=== PATIENT | female | born 1975 | race Caucasian/White ===

== ENCOUNTER → 2018-03-02 15:27 | Outpatient (CLI) | payer BC, SELFPAY ==
[2018-03-02 17:55] LABS: Progesterone Level 0.02 ng/mL (See Comment)
[2018-03-02 17:57] LABS: Estradiol 61.2 pg/mL; Free T3 2.7 pg/mL (2.18-3.98); T4 Free Direct 0.94 ng/dL (0.76-1.46)
[2018-03-04 12:35] LABS: DHEA Sulfate 49.9 ug/dL (57.3-279.2)
== END ==
PROVIDERS: Referring Provider Specialist; Visit Provider Specialist
DX: N95.1 Menopausal and female climacteric states (principal); R53.81 Other malaise; E03.8 Other specified hypothyroidism
CPT/HCPCS: 36415; 82627; 82670; 84144; 84403; 84439; 84443; 84481; 82626

== ENCOUNTER 2019-05-08 17:03 | Emergency (ER) | payer BC, SELFPAY ==
[2019-05-08 17:05] VITALS: BP 154/102; PULSE 77; RESP 17; TEMP 36.7; O2SAT 96; BMI 41.5
[2019-05-08 18:59] VITALS: RESP 18; O2SAT 96
--- NOTE | 2019-05-08 19:03 | EKG12_ITS ---
Test Reason : DYSRHYTHMIA Blood Pressure : / mmHG Vent. Rate : 070 BPM Atrial Rate : 070 BPM P-R Int : 140 ms QRS Dur : 086 ms QT Int : 396 ms P-R-T Axes : 037 016 006 degrees QTc Int : 427 ms Normal sinus rhythm Nonspecific T wave abnormality Abnormal ECG Confirmed by KATHY LABOY, JESSE ([id number]), art editor ED HERR ([id number]) on 05/10/2019 11:00:37 AM Referred By: MIK Confirmed By:JESSE CHAVEZ MD
--- NOTE | 2019-05-08 19:05 | ED.VIS.FLU ---
History of Present Illness Chief Complaint: Cough Informant: Patient Known exposure: Yes - sick family memebers Onset: Weeks Context: Gradual Onset Timing: Continuous Associated Symptoms: Chills, Cough, Fever, Green sputum, Sore throat Chest Pain: Pressure, Tightness Narrative: Patient is a 43-year-old female with history of migraine headaches and asthma presenting with worsening cough and shortness of breath. Patient was exposed to her son who had a cold around jessy. Since then she has also had cough, sore throat, myalgias and fever. Cough is been productive of green/brown sputum. She intermittently feels like she is wheezing and has been using her albuterol inhaler. She thinks her cough is worsening and has associated shortness of breath which is why she came into the emergency room. She states her cough is very deep. She has chest tightness associated with it. She has had 3 nosebleeds with all of her symptoms as well. She is been trying multiple yqyw-yxw-biiekuy medications with no relief. She is not been formally evaluated for these complaints. She notes that she was in [place] for the holidays and flew back [facility] [place]. She states there is a lot of people coughing around her at that time. She denies any swelling of her legs. Past Medical History - Allergies and Home Meds Allergies/Adverse Reactions: Allergies latex Allergy (Verified 05/08/19 17:09) Rash trifluoperazine [From Stelazine] Allergy (Verified 05/08/19 17:04) Other Primary Care Physician: SHARON BAEZ [Other] Past Medical History: - - Anxiety, insomnia Surgical History: noncontributory Lives: Spouse/ Significant Other Smoking Status: Never smoker Review of Systems General: Reports: Chills, Fever, Malaise. Denies: Sweats ENT: Reports: Left ear pain, Sore throat. Denies: Rhinorrhea Cardiovascular: Reports: Chest pain - Tightness. Denies: Palpitations Respiratory: Reports: Dyspnea, Cough, Sputum, - - Chest congestion. Denies: Dyspnea on exertion Gastrointestinal: Denies: Abdominal pain, Nausea, Vomiting, Diarrhea, Melena, Hematochezia Genitourinary: Denies: Dysuria, Hematuria, Frequency Skin: Denies: Rash Neurological: Denies: Headache, Weakness, Numbness Physical Exam Vital Signs/Narrative: Vital Signs Temp Pulse Resp BP Pulse Ox 05/08/19 18:59 18 96 05/08/19 17:05 98.1 F 77 17 154/102 H 96 Inital Vital Signs reviewed: Yes General: Well nourished, Well developed, Obese Head: Normocephalic, Atraumatic Eyes: Perrl, EOMI ENT: Moist mucous membranes, No rhinorrhea, - - Normal right tympanic membrane. Left tympanic membrane has dullness and mild erythema. No bulging or air-fluid level noted Neck: Supple, Nontender Cardiovascular: Regular rate, Regular rhythm, No murmurs Respiratory: No distress, CTA bilaterally, No Stridor Abdomen: Soft, Nontender, Nondistended, Normal bowel sounds Back: Nontender, Normal Inspection Extremities: Nontender, No edema Skin: Normal color, No rash Neurological: Alert, Oriented x3, Cranial nerves II-XII grossly intact, Normal Strength, Normal Sensation Psychological: Normal affect Diagnostic/Tx/Re-eval Chest X-Ray - ED: 2 View, Read by ED Physician, Read by Radiologist, No Acute Disease Clinical Impression(s) from Imaging Studies Chest X-Ray 05/08/19 20:12 IMPRESSION: Normal x-ray examination of the chest. Electronically Signed: Diego Faustin DO at 21:01 EST Tel [phone], Service support , Laboratory Data 05/08/19 05/08/19 18:55 18:55 WBC 9.3 RBC 4.55 Hgb 13.4 Hct 40.0 MCV 87.9 MCH 29.5 MCHC 33.5 RDW Std Deviation 43.8 RDW Coeff of Breana 13.7 Plt Count 269 MPV 10.4 Immature Gran % (Auto) 0.500 Neut % (Auto) 60.9 Lymph % (Auto) 28.9 Door % (Auto) 5.0 Eos % (Auto) 4.2 Baso % (Auto) 0.5 Absolute Neuts (auto) 5.6 Absolute Lymphs (auto) 2.68 Nucleated RBC % 0 Sodium 140 Potassium 3.6 Chloride 109 H Carbon Dioxide 25.0 Anion Gap 6 BUN 10 Creatinine 0.95 Estim Creat Clear Calc 67.29 Est GFR (MDRD) Af Amer 82 Est GFR (MDRD) Non-Af 67 BUN/Creatinine Ratio 10.5 Glucose 90 Calcium 9.5 Total Bilirubin 0.40 AST 42 H ALT 79 H Alkaline Phosphatase 95 Troponin I < 0.015 Total Protein 7.8 Albumin 3.9 Globulin 3.9 Albumin/Globulin Ratio 1.0 - Rhythm Strip Rhythm Strip: Sinus Rhythm Rate: 70 Ectopy: None - EKG Initial EKG Interpretation: Sinus Rhythm, - - Normal sinus rhythm at a rate of 70 Normal axis Normal intervals Nonspecific T wave inversion in 3 and aVF No reciprocal changes Fluid Bolus: NS 1000ml - Medical Decision Making Patient is evaluated for cough, myalgias, chest tightness and left ear pain. She appears nontoxic in no acute distress. Her vital signs are normal. Looks cells are clear. Patient looks well on physical exam but uncomfortable. Flu swab is negative. Chest x-ray is not show any acute infiltrate. CBC is normal. Patient CMP shows a very mild transaminitis however I do not think this is the cause of her symptoms. Patient does not have any abdominal pain specially in her right upper quadrant. Cardiac work-up is normal. Likely patient symptoms are all viral. I do not think antibiotics are indicated. She is given a shot of Kenalog to help with her sore throat and cough. She is also started on Robitussin-AC. She is instructed to follow-up with her primary care provider. Patient is counseled on signs and symptoms requiring return to the emergency room. Patient verbalizes agreement and understand this plan. Patient discharged home in stable and improved condition. ED Disposition - Plan for ED Patient: Disposition: Home or Assisted Living Diagnosis: Cough, Acute bronchitis, Acute effusion of left ear Instructions: BRONCHITIS, No Antibiotic (Adult) Prescriptions: Fluticasone 0.05% [Flonase Nasal [place]] 2 spray NASAL DAILY 14 Days #1 nasal.sry Prescription Printed Guaifenesin/Codeine [Robitussin AC] 10 ml PO Q6H PRN PRN #100 udc PRN Reason: Cough Prescription Printed Referrals: SHARON BAEZ [Other] Additional Instructions: Likely this is a viral syndrome that is causing this cough and constellation of symptoms. You received a shot of steroids which should help with the symptoms. You have been written for cough medicine to help as well as Flonase for your ear pain. Please follow-up with your primary care doctor later this week for reevaluation. Return the emergency room if you have worsening or changing symptoms. At this time I do not think you require antibiotics and are safe to go home.
--- NOTE | 2019-05-08 19:09 | ED.RN ---
NO OLD EKGS IN MUSE
[2019-05-08 19:20] VITALS: PULSE 93; RESP 20
[2019-05-08] MEDS: Albuterol 2.5 MG/3 ML VIAL.NEB. INHALATION (19:20)
[2019-05-08 19:22] LABS: Absolute Lymphocyte Count 2.68 X10^3/uL (0.83-4.51); Absolute Neutrophil Count 5.6 X10^3/uL (2.0-7.7); Basophil# 0.05 X10^3/uL; Basophil% 0.5 % (0-1); Eosinophil# 0.39 X10^3/uL; Eosinophils% 4.2 % (0-5); Hemoglobin 13.4 g/dL (12.0-15.0); Lymphocyte # 2.68 X10^3/ul (4.0); Lymphocyte % 28.9 % (19-41); Mean Corp Hgb Conc 33.5 g/dL (32-36); Mean Corpuscular Hgb 29.5 pg (27.0-32.0); Mean Corpuscular Volume 87.9 fL (81-99); Mean Platelet Vol. 10.4 fl (6.2-12.0); Monocyte# 0.46 X10^3/uL; NRBC Flagged by Analyzer 0 % (0-5); Neutrophil # 5.64 X10^3/uL (2.7-7.7); Neutrophil % 60.9 % (47-70); Platelet Count 269 K/mm3 (150-450); RBC Distribution Width CV 13.7 % (11.6-14.6); RBC Distribution Width SD 43.8 fl (35.1-43.9); Red Blood Count 4.55 M/mm3 (4.2-5.4); White Blood Count 9.3 K/mm3 (4.4-11.0)
[2019-05-08 19:39] LABS: AST(SGOT) 42 U/L (15-37); Alanine Aminotransfer ALT/SGPT 79 U/L (13-56); Albumin, Serum 3.9 g/dL (3.2-5.0); Alkaline Phosphatase 95 U/L (45-117); Anion Gap 6 (5-15); BUN 10 mg/dL (7-18); BUN/Creat Ratio 10.5 RATIO (10-20); Calcium,Total 9.5 mg/dL (8.5-10.1); Chloride 109 mmol/L (98-107); Creatinine, Serum 0.95 mg/dL (0.55-1.02); EST Glomerular Filtration Rate 67 mL/min (>60); Est Glom Filt Rate - Afr Amer 82 mL/min (>60); Estimated Creatinine Clearance 67.29 ml/min; Globulin 3.9 g/dL (2.2-4.2); Glucose 90 mg/dL (74-106); Potassium 3.6 mmol/L (3.5-5.1); Protein, Total 7.8 g/dL (6.4-8.2); Sodium Level 140 mmol/L (136-145)
[2019-05-08] MEDS: 0.9% Normal Saline 1,000 ML 1000 ML IV (19:56)
[2019-05-08] MEDS: proMETHazine 25 MG/ML Syringe 12.5 MG IV (19:56)
[2019-05-08] MEDS: Ketorolac 15 MG/ML Vial IV (19:56)
[2019-05-08 20:01] VITALS: RESP 14
--- NOTE | 2019-05-08 20:12 | RAD_ITS ---
STUDY: X-RAY CHEST REASON FOR EXAM: Female, 43 years old. Cough. TECHNIQUE: PA and lateral views of the chest. COMPARISON: None. FINDINGS: The lungs are clear and expanded. There is no demonstrated pleural abnormality. Normal size heart. Normal mediastinum and lelo. Normal visualized pulmonary arteries. Normal visualized aortic arch and descending thoracic aorta. Normal visualized thoracic spine. Normal visualized ribs, clavicles, and shoulders. There is no demonstrated abnormality of the visualized soft tissue structures of the upper abdomen. RAD/Chest PA and Lateral IMPRESSION: Normal x-ray examination of the chest. Electronically Signed: Diego Faustin DO at 21:01 EST Tel [phone], Service support ,
[2019-05-08] MEDS: Triamcinolone Acetonide 40 MG/ML Vial IM (22:23)
[2019-05-08 23:12] VITALS: BP 148/99; PULSE 89; RESP 17; O2SAT 97
== END 2019-05-08 23:13 | disposition home or self-care (01) ==
PROVIDERS: Emergency Provider Emergency Medicine
DX: J20.9 Acute bronchitis, unspecified (principal); R05 Cough; F41.9 Anxiety disorder, unspecified; G43.909 Migraine, unspecified, not intractable, without status migrainosus; J45.909 Unspecified asthma, uncomplicated; Z91.040 Latex allergy status; R94.31 Abnormal electrocardiogram [ECG] [EKG]; G47.00 Insomnia, unspecified
CPT/HCPCS: 71046; 80053; 84484; 85025; 87804; 93005; 94640; 94760; 96361; 96372; 96374; 96375; 99283; J7030; A4216

== ENCOUNTER → 2020-10-15 13:13 | Outpatient (CLI) | payer BC, SELFPAY ==
[2020-10-15 15:44] LABS: Cholesterol 200 mg/dL (200); Glucose 103 mg/dL (74-106); High Density Lipoprotein 45 mg/dL; Thyroid Stim Hormone (TSH) 1.62 uIU/mL (0.358-3.74); Triglycerides 177 mg/dL; Very Low Density Lipoprotein 35 mg/dL (5-40)
== END ==
DX: R63.5 Abnormal weight gain (principal); Z13.220 Encounter for screening for lipoid disorders; Z13.1 Encounter for screening for diabetes mellitus
CPT/HCPCS: 36415; 80061; 82947; 84443

== ENCOUNTER → 2020-11-12 14:54 | Outpatient (CLI) | payer BC, SELFPAY ==
[2020-11-12 18:10] LABS: Hemoglobin A1c 5.4 % (3.8-5.6)
== END ==
DX: Z13.1 Encounter for screening for diabetes mellitus (principal)
CPT/HCPCS: 36415; 83036

== ENCOUNTER 2021-07-09 14:58 | Outpatient (CLI) | payer BC, SELFPAY ==
--- NOTE | 2021-07-09 15:09 | CT_ITS ---
STUDY: CT ABDOMEN AND PELVIS WITH CONTRAST REASON FOR EXAM: Female, 45 years old. ABD/PELVIC/PERINEAL PAIN RADIATION DOSAGE (If Supplied By Facility): CTDIvol = ( 22.06 ) mGy, DLP = ( 1329.87 ) mGycm TECHNIQUE: Transaxial images were obtained from the dome of the diaphragm to the symphysis pubis with oral contrast. Oral and amp; IV Gastrografin and amp; 100mL Isovue-300 was administered. Sagittal and coronal images were reconstructed. Individualized dose optimization techniques were used for this CT. COMPARISON: None. FINDINGS: The visualized lung bases are unremarkable. The visualized portions of the heart are within normal limits. Normal liver. There are surgical clips in the gallbladder fossa consistent with a prior cholecystectomy. Normal spleen. Normal pancreas. There is a small, circumscribed, smooth, low attenuation left adrenal mass, consistent with an adrenal adenoma. Normal right adrenal gland. Normal right kidney. Normal left kidney. Normal visualized stomach. Normal small intestine. Normal colon. There is non-visualization of the appendix. Normal abdominal aorta. Normal inferior vena cava. Normal retroperitoneum. Normal urinary bladder. Normal abdominal wall. Normal osseous structures. CT/Abdomen/Pelvis WITH Contrast IMPRESSION: Normal enhanced CT of the abdomen and pelvis. Electronically Signed: Eduard Ferguson MD at 17:38 EST ,
== END 2021-07-09 23:59 | disposition home or self-care (01) ==
PROVIDERS: Visit Provider Family Medicine
DX: R10.84 Generalized abdominal pain (principal); R10.2 Pelvic and perineal pain
CPT/HCPCS: 74177; Q9967

== ENCOUNTER → 2021-10-31 | Outpatient (CLI) | payer BC, SELFPAY ==
[2021-11-05 12:28] LABS: H. PYLORI STOOL AG Negative (Negative)
== END | disposition home or self-care (01) ==
DX: Z20.09 Contact with and (suspected) exposure to other intestinal infectious diseases (principal)

== ENCOUNTER → 2022-04-29 | Outpatient (CLI) | payer BC, SELFPAY ==
--- NOTE | 2022-04-29 15:16 | BI_ITS ---
MAMMOGRAPHY - BILATERAL SCREENING REASON FOR EXAM: Female, 46 years old. Routine annual screening examination. PERTINENT HISTORY: Grandmother with breast cancer. Remote bilateral excisional breast biopsies. TECHNIQUE: Digital bilateral breast elliott (3D mammographic acquisition) in the CC and MLO projections. 2-D mediolateral oblique (MLO) and craniocaudad (CC) views of both breasts were obtained. CAD: Full Field Digital Mammography with Computer Added Detection was performed. COMPARISON: Comparison is made with prior outside examination of 02/01/2021. FINDINGS: Breast Composition: There are scattered areas of fibroglandular density. There are no dominant masses or suspicious calcifications. Stable small benign-appearing bilateral axillary lymph nodes. No other significant abnormalities are identified. There has been no significant change since the prior study. BI/SCRN MAMM (CAD)W/ELLIOTT BILAT IMPRESSION: Stable bilateral screening mammogram. Yearly follow-up mammogram recommended. (A) ASSESSMENT CATEGORY: BIRADS Category 2: Benign. A letter regarding these results will be sent to the patient by the facility within 30 days. Approximately 10% of breast cancers are not detected by mammography. A normal mammogram should not delay biopsy of a clinically suspicious abnormality. [id number] Electronically Signed: Romero Dunlap MD at 14:31 EST ,
== END | disposition home or self-care (01) ==
PROVIDERS: Visit Provider Family Medicine
DX: Z12.31 Encounter for screening mammogram for malignant neoplasm of breast (principal)
CPT/HCPCS: 77063; 77067

== ENCOUNTER 2022-05-13 16:10 | Emergency (ER) | payer BC, SELFPAY ==
[2022-05-13 16:11] VITALS: PULSE 85; RESP 15; TEMP 36.5; O2SAT 100; BMI 43.4
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
[2022-05-13 19:09] VITALS: RESP 16
== END 2022-05-13 19:10 | disposition home or self-care (01) ==
PROVIDERS: Emergency Provider Emergency Medicine; PCP Family Medicine; Visit Provider Emergency Medicine
DX: S40.011A Contusion of right shoulder, initial encounter (principal); S60.211A Contusion of right wrist, initial encounter; S70.01XA Contusion of right hip, initial encounter; E66.9 Obesity, unspecified; V43.52XA Car driver injured in collision with other type car in traffic accident, initial encounter
CPT/HCPCS: 71045; 73030; 73110; 73502; 99284

== ENCOUNTER → 2023-03-16 | Outpatient (CLI) | payer BC, SELFPAY ==
--- NOTE | 2023-03-16 14:16 | BD_ITS ---
STUDY: DUAL ENERGY X-RAY ABSORPTIOMETRY / DXA REASON FOR EXAM: Female, 47 years old. 733.00OsteoporosisBONE DENSITY REASON FOR EXAM TECHNIQUE: Bone Mineral Density (BMD) measurements of lumbar spine , left forearm and bilateral hips were obtained. COMPARISON: None. FINDINGS: Lumbar Spine (L1-L4): g/cm2 (0.936) / T-score (-1.0) / Z-score (-0.3) Findings are suggestive of normal bone density with a low fracture risk. Left Femur Total: g/cm2 (0.918) / T-score (-0.2) / Z-score (0.2) Left Femoral Neck: g/cm2 (0.764) / T-score (-0.8) / Z-score (-0.1) Right Femur Total: g/cm2 (0.918) / T-score (-0.2) / Z-score (0.2) Right Femoral Neck: g/cm2 (0.764) / T-score (-0.8) / Z-score (-0.1) Left Forearm: g/cm2 (0.567) / T-score (-0.2) / Z-score (0.4) BD/Dexa Bone Density Study IMPRESSION: The patient is considered normal as outlined below according to World Jose Organization (WHO) criteria with a low fracture risk. Reference Information: The T-score is the number of standard deviations above or below the standard which is normal for young adults at their peak bone mineral density. The World Health Organization (WHO) interprets the T-scores as follows: Above -1 Normal bone density Between -1 and -2.5 Osteopenia Equal to / or below -2.5 Osteoporosis As a practical clinical guideline, osteopenia may be graded as follows: Mild -1 through -1.5 Moderate -1.6 through -2.0 Severe -2.1 through -2.4 The Z-score is the number of standard deviations above or below age-matched controls. A Z-score of less than -1.5 would be considered abnormal. References: 1. NIH Osteoporosis and Related Bone Diseases www osteo.org 2. International Society for Clinical Densitometry www iscd.org 3. National Osteoporosis Foundation www nof.org Electronically Signed: Romero Dunlap MD at 9:11 EST ,
== END | disposition home or self-care (01) ==
LOC: OPBD 13:59
PROVIDERS: PCP Family Medicine; Referring Provider Internal Medicine Endocrinology, Diabetes & Metabolism; Visit Provider Internal Medicine Endocrinology, Diabetes & Metabolism
DX: M85.89 Other specified disorders of bone density and structure, multiple sites (principal)
CPT/HCPCS: 77080

== ENCOUNTER 2023-03-20 13:37 | Emergency (ER) | payer BC, SELFPAY ==
[2023-03-20 13:39] VITALS: BP 134/108; PULSE 83; RESP 18; TEMP 36.2; O2SAT 97; BMI 47.1
--- NOTE | 2023-03-20 14:18 | CT_ITS ---
INDICATION: headache EXAMINATION: CTA HEAD - CTA Head WO/W Contrast Injection TECHNIQUE: [place]/head CT angiogram protocol was performed following IV contrast. 3D reconstructions were reviewed. A radiation dose optimization technique was used for this scan. IV Contrast dosage and agent: 100 cc of Isovue-370 . RADIATION DOSAGE (If Supplied By Facility): CTDIvol = ( 26.12 ) mGy, DLP = ( 1161.92 ) mGycm COMPARISON: No relevant prior comparison study available FINDINGS: Noncontrast images of the brain demonstrate no acute process. Ventricles are normal in size and position. No shift of the midline or mass effect. No evidence of intracranial hemorrhage or subdural hematoma. --Anterior circulation: ICAs: No significant stenosis at the intracranial/visualized segments. ACAs: No significant stenosis at the visualized segments. ACOM: Present. MCAs: No significant stenosis at the visualized segments. --Posterior circulation: PCOMs: housing and residence life director: No significant stenosis at the visualized segments. BASILAR ARTERY: No significant stenosis. VERTEBRAL ARTERIES: No significant stenosis at the intradural/visualized segments. No evidence of intracranial aneurysm or vascular malformation. CT/CTA Head W/WO Contrast IMPRESSION: No evidence of intracranial great vessel stenosis. Electronically Signed: Danny Venegas MD at 16:03 EST ,
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
[2023-03-20 14:33] LABS: Absolute Lymphocyte Count 1.58 X10^3/uL (0.83-4.51); Absolute Neutrophil Count 8.2 X10^3/uL (2.0-7.7); Basophil# 0.05 X10^3/uL; Basophil% 0.5 % (0-1); Eosinophil# 0.14 X10^3/uL; Eosinophils% 1.3 % (0-5); Hemoglobin 13.6 g/dL (12.0-15.0); Lymphocyte # 1.58 X10^3/ul (0.83-4.51); Lymphocyte % 15.1 % (19-41); Mean Corp Hgb Conc 31.6 g/dL (32-36); Mean Corpuscular Hgb 28.6 pg (27.0-32.0); Mean Corpuscular Volume 90.5 fL (81-99); Monocyte# 0.43 X10^3/uL; Monocyte% 4.1 % (0-10); NRBC Flagged by Analyzer 0 % (0-5); Neutrophil # 8.19 X10^3/uL (2.7-7.7); Neutrophil % 78.5 % (47-70); Platelet Count 267 K/mm3 (150-450); RBC Distribution Width CV 13.8 % (11.6-14.6); RBC Distribution Width SD 46.8 fl (35.1-43.9); Red Blood Count 4.75 M/mm3 (4.2-5.4); White Blood Count 10.4 K/mm3 (4.4-11.0)
[2023-03-20] MEDS: 0.9% Normal Saline (1000mL) 1,000 ML 999 ML IV (14:36)
[2023-03-20] MEDS: DiphenhydrAMINE 50 MG/ML Syringe 25 MG IV (14:37)
[2023-03-20] MEDS: Metoclopramide 10 MG/2 ML Vial IV (14:37)
[2023-03-20 14:48] LABS: Anion Gap 5 (5-15); BUN 9 mg/dL (7-18); BUN/Creat Ratio 9.5 RATIO (10-20); Calcium,Total 9.5 mg/dL (8.5-10.1); Chloride 104 mmol/L (98-107); Creatinine, Serum 0.95 mg/dL (0.55-1.02); EST Glomerular Filtration Rate 66 mL/min (>60); Est Glom Filt Rate - Afr Amer 80 mL/min (>60); Estimated Creatinine Clearance 64.46 ml/min; Glucose 125 mg/dL (74-106); Potassium 4.2 mmol/L (3.5-5.1); Sodium Level 138 mmol/L (136-145)
[2023-03-20] MEDS: Ketorolac 30 MG/ML Syringe IV (16:06)
[2023-03-20] MEDS: dexAMETHasone 10 MG/ML Vial 6 MG IV (16:07)
[2023-03-20 16:30] LABS: Bacteria 0 SEEN /hpf (None Seen); Mucous, Urine 0 SEEN /hpf (<or=2+); Squamous Epithelial Cells - UA 0 SEEN /hpf (5-10); White Blood Cells 0 SEEN /hpf (0-5)
[2023-03-20 16:36] LABS: Color, Urine Yellow (Yellow); Glucose, Dipstick Normal (Normal); Ketone-Dipstick Negative (Negative); Leukocyte Esterase-Dipstick Negative /ul (Negative); Nitrite-Dipstick Negative (Negative); Occult Blood-Urine Negative /ul (Negative); Protein-Dipstick Negative (Negative); Urine Bilirubin Dipstick Negative (Negative); Urine Clarity Clear (Clear); Urine Urobilinogen Normal (Normal)
[2023-03-20 16:52] LABS: Red Blood Cells-Urine 0-5 SEEN /hpf (0-5)
[2023-03-20] MEDS: Valproate Sodium 500 MG in Dextrose 5%-Water (50mL Bag) 50 ML 50 MG IV (17:15)
[2023-03-20 18:21] VITALS: BP 147/93; PULSE 74; RESP 14; O2SAT 99
== END 2023-03-20 18:22 | disposition home or self-care (01) ==
PROVIDERS: Physician Assistant; Emergency Provider Emergency Medicine; PCP Family Medicine; Visit Provider Emergency Medicine
DX: G43.909 Migraine, unspecified, not intractable, without status migrainosus (principal)
CPT/HCPCS: 70496; 80048; 81001; 85025; 96361; 96365; 96375; 99283; J7030; Q9967; A4216

== ENCOUNTER → 2023-05-27 | Outpatient (CLI) | payer BC, SELFPAY ==
[2023-05-27 18:17] LABS: AST(SGOT) 22 U/L (15-37); Alanine Aminotransfer ALT/SGPT 36 U/L (13-56)
[2023-05-27 18:18] LABS: Insulin 57.8 mU/L (2.6-37.6); Vitamin D,25 Hydroxy 38.8 ng/mL
== END | disposition home or self-care (01) ==
LOC: MTLAB 16:25
PROVIDERS: PCP Family Medicine; Referring Provider Internal Medicine Endocrinology, Diabetes & Metabolism; Visit Provider Internal Medicine Endocrinology, Diabetes & Metabolism
DX: E88.818 Other insulin resistance (principal); E55.9 Vitamin D deficiency, unspecified
CPT/HCPCS: 36415; 82306; 83525; 84450; 84460

== ENCOUNTER → 2023-05-31 | Outpatient (CLI) | payer BC, SELFPAY ==
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
== END | disposition home or self-care (01) ==
LOC: OPBI 14:54
PROVIDERS: PCP Family Medicine; Referring Provider Family Medicine; Visit Provider Family Medicine
DX: Z12.31 Encounter for screening mammogram for malignant neoplasm of breast (principal)
CPT/HCPCS: 77063; 77067

== ENCOUNTER → 2023-07-02 | Outpatient (CLI) | payer BC, SELFPAY ==
--- NOTE | 2023-07-02 10:21 | RAD_ITS ---
INDICATION: PAIN EXAMINATION/TECHNIQUE: X-RAY - XR Pelvis 1 or 2 Views COMPARISON: 05/13/2022 FINDINGS: PELVIC BONES: No displaced fracture, destructive or sclerotic lesions. Note that overlapping bowel shadows may however obscure fine detail. Sacroiliac joints are unremarkable. No widening of the pubic symphysis. HIPS: The articular structures are unremarkable. No displaced fracture seen in this frontal view. SOFT TISSUES: No soft tissue swelling or gas. RAD/Pelvis 1 or 2 Views IMPRESSION: No evidence of displaced pelvic or hip fracture. Electronically Signed: Eduard Nava MD at 18:30 EST ,
--- OUTSIDE RECORDS SUMMARY | 2023-07-02 10:41 | XMS RPT_ITS | CCD ---
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 Exam Vitals reviewed. Constitutional: Appearance: Normal appearance. HENT: Head: Normocephalic and atraumatic. Skin: General: Skin is warm and dry. Comments: Patient has 4 erythematous red raised lesions with central blister on the left upper arm. Mildly tender on palpation. No sign of abscess. No lymphangitic streaking. Neurological: Mental Status: She is alert. Assessment and Plan ASSESSMENT/PLAN: 1. Rash - ICD9: 782.1, ICD10: R21 (primary diagnosis) 2. Spider bite wound, accidental or unintentional, initial encounter - ICD9: 989.5, E905.1, ICD10: T63.301A We will treat with prednisone and Zyrtec. Patient states she has taken care of her son who has had MRSA before, will cover with Bactrim for possible secondary infection. Bia Negrete PA-C [facility] 01-20-2023 History of Present illness Narrative Images from the original note were not included. This note was created using [employer]. Subjective Joni Kenny is a 47 year old female. HPI Presents with spider bite on her left arm over the past 3 days. She states it was a fuzzy spider and her actually had killed in the bed after it had bit her. She is initially was very itchy. She had some blisters initially. Now it has become painful. She had tried some Benadryl which did not seem to help a lot. Her child does have a history of MRSA, she is never had MRSA that she knows of. She states she has been reacting to mosquito bites lately as well when she typically did not. She denies fever or chills. No vomiting. Review of Systems Skin: Spider bites left arm All other systems reviewed and are negative. History reviewed. No pertinent past medical history. Current Outpatient Medications Medication Sig Dispense Refill amitriptyline (ELAVIL) 25 mg tablet TAKE 1 TABLET BY MOUTH EVERY DAY AT NIGHT clotrimazole-betamethasone (LOTRISONE) cream APPLY ON THE SKIN TWICE A DAY NEEDED cyclobenzaprine (FLEXERIL) 5 mg tablet Take 5 mg by mouth three times daily as needed. econazole (SPECTAZOLE) 1 % cream APPLY TWICE DAILY TO THE AFFECTED AREAS OF THE FEET NEEDED Erythromycin-Benzoyl Peroxide gel APPLY ON THE SKIN TWICE A DAY NEEDED FLUoxetine (PROZAC) 20 mg capsule Take 1 capsule by mouth every afternoon. meloxicam (MOBIC) 15 mg tablet Take 1 tablet by mouth every afternoon. mupirocin (BACTROBAN) 2 % ointment APPLY 1 APPLICATION TOPICALLY ON THE SKIN TWICE A DAY promethazine (PHENERGAN) 25 mg tablet Take 25 mg by mouth. tolterodine ER (DETROL LA) 2 mg 24 hr capsule Take 1 capsule by mouth every 12 (twelve) hours. terbinafine HCl (LAMISIL) 250 mg tablet TAKE 1 TABLET BY MOUTH TWICE A DAY FOR 2 WEEKS albuterol HFA (PROAIR HFA) 90 mcg/actuation inhaler Inhale 2 Puffs as instructed every 4 hours as needed. 1 Inhaler 0 predniSONE (DELTASONE) 20 mg tablet Take 2 tablets by mouth once daily for 5 days. 10 tablet 0 sulfamethoxazole-trimethoprim (BACTRIM DS) 800-160 mg per tablet Take 1 tablet by mouth twice daily for 5 days. 10 tablet 0 TOPIRAMATE (TOPAMAX ORAL) Take by mouth. (Patient not taking: Reported on 01/20/2023) ALPRAZOLAM (XANAX ORAL) Take by mouth as needed. (Patient not taking: Reported on 01/20/2023) MEDICATION, NON-DATABASE Ibuprofen, flexerall & phenergan combination (Patient not taking: Reported on 01/20/2023) ZOLPIDEM TARTRATE (AMBIEN ORAL) Take by mouth. (Patient not taking: Reported on 01/20/2023) VITAMIN E ORAL Take by mouth. (Patient not taking: Reported on 01/20/2023) CALCIUM CARBONATE/VITAMIN D3 (VITAMIN D-3 ORAL) Take by mouth. (Patient not taking: Reported on 01/20/2023) GLUCOSAM/MSM/CHOND/IPK522/HYAL ([id number], WITH ANTIOX, ORAL) Take by mouth. (Patient not taking: Reported on 01/20/2023) CYANOCOBALAMIN, VITAMIN B-12, (VITAMIN B12 ORAL) Take by mouth. (Patient not taking: Reported on 01/20/2023) MULTIVITAMIN ORAL Take by mouth. (Patient not taking: Reported on 01/20/2023) No current facility-administered medications for this visit. No past surgical history on file. No family history on file. Social History Tobacco Use Smoking status: Former Smokeless tobacco: Never Objective BP 118/78 Pulse 84 Temp 36.5 C (97.7 F) (Tympanic) Resp 16 Wt 125.2 kg (276 lb) SpO2 97% Physical Exam Vitals reviewed. Constitutional: Appearance: Normal appearance. HENT: Head: Normocephalic and atraumatic. Skin: General: Skin is warm and dry. Comments: Patient has 4 erythematous red raised lesions with central blister on the left upper arm. Mildly tender on palpation. No sign of abscess. No lymphangitic streaking. Neurological: Mental Status: She is alert. Assessment and Plan ASSESSMENT/PLAN: 1. Rash - ICD9: 782.1, ICD10: R21 (primary diagnosis) 2. Spider bite wound, accidental or unintentional, initial encounter - ICD9: 989.5, E905.1, ICD10: T63.301A We will treat with prednisone and Zyrtec. Patient states she has taken care of her son who has had MRSA before, will cover with Bactrim for possible secondary infection. Bia Negrete PA-C documented in this encounter [facility] 01-20-2023 Instructions Bia Negrete PA-C - 01/20/2023 10:38 AM EDT Zyrtec 10 mg daily for 5-7 days documented in this encounter [facility] 10-14-2022 Note . MICRO - Microbiology PROCEDURE: Urine Culture [*1] SOURCE: Urine BODY SITE: COLLECTED DATE/TIME: 10/12/2022 14:57 EDT RECEIVED DATE/TIME: 10/12/2022 19:56 EDT START DATE/TIME: 10/12/2022 19:56 EDT FREE TEXT SOURCE: FINAL REPORTS Final Report [] Verified Date/Time/Personnel: 10/14/2022 07:59 EDT 10,000 - 50,000 cfu/ml Mixed growth consistent with normal urogenital horacio. PRELIMINARY REPORTS Preliminary Report [] Verified Date/Time/Personnel: 10/13/2022 08:51 EDT No growth to date Performing Locations *1: This test was performed at: [facility], [address] [place] [address], [id number] , [facility] ([place]) 11-19-2021 Note . MICRO - Microbiology PROCEDURE: Urine Culture [*1] SOURCE: Urine BODY SITE: COLLECTED DATE/TIME: 11/17/2021 12:45 EDT RECEIVED DATE/TIME: 11/17/2021 17:36 EDT START DATE/TIME: 11/17/2021 17:41 EDT FREE TEXT SOURCE: FINAL REPORTS Final Report [] Verified Date/Time/Personnel: 11/19/2021 08:08 EDT 10,000 - 50,000 cfu/ml Mixed growth consistent with normal urogenital horacio. PRELIMINARY REPORTS Preliminary Report [] Verified Date/Time/Personnel: 11/18/2021 09:23 EDT No growth to date Performing Locations *1: This test was performed at: [facility], [address] [place] [address], [facility] , [facility] ([place]) [facility] Diagnosis Rash- Primary Rash and other nonspecific skin eruption Spider bite wound, accidental or unintentional, initial encounter [facility] Diagnosis Tinnitus, bilateral- Primary Unspecified tinnitus Vertigo Dizziness and giddiness [facility] Diagnosis Subjective tinnitus of both ears- Primary Normal hearing exam Other examination of ears and hearing TMJ click Right ear pain Unspecified otalgia documented in this encounter [facility] Summary Purpose Family History No Family History Records FoundNo Family History Records FoundNo Family History Records FoundNo Family History Records FoundNo Family History Records FoundNo Family History Records Found Advance Directives No Advanced Directives Records FoundNo Advanced Directives Records FoundNo Advanced Directives Records FoundNo Advanced Directives Records FoundNo Advanced Directives Records FoundNo Advanced Directives Records Found Reason for Referral Specialty Diagnoses / Procedures Referred By Contac t Referred To Contact Otolaryngology Diagnoses Subjective tinnitus, unspecified laterality Johan Williamson DO [facility] [place] [address] Rell Berumen MD [facility] [address] [address] Referral ID Status Reason Start Date Expiration Date V isits Requested Visits Authorized [id number] Authorized 01/05/2023 01/05/2024 1 1 Specialty Diagnoses / Procedures Referred By José Miguel t Referred To Contact Audiology Diagnoses Subjective tinnitus of both ears Normal hearing exam [place], Phillip Hernandez, CREATIVE MANAGER [address] [facility] [address] [place] [address] Perla Mahoney AuD [address] [facility] [address] [place] [address] Referral ID Status Reason Start Date Expiration Date V isits Requested Visits Authorized [id number] Authorized 02/10/2023 02/10/2024 1 1 Additional Source Comments INFORMATION SOURCE (unrecogn ized section and content) DATE CREATED AUTHOR AUTHOR'S ORGANIZ ATION 06/14/2021 [facility] DATE CREATED AUTHOR AUTHOR'S ORGANIZ ATION 11/09/2022 [facility] ([place]) DATE CREATED AUTHOR AUTHOR'S ORGANIZ ATION 01/22/2023 [facility] DATE CREATED AUTHOR AUTHOR'S ORGANIZ ATION 02/27/2023 [facility] DATE CREATED AUTHOR AUTHOR'S ORGANIZ ATION 04/23/2023 [facility] Care Teams (unrecognized sec tion and content) Ben Day Artist Relationship Specialty [place] [address] [place] [address] [place] [address] PCP - General Family Medicine 03/23/16 Ben Day Artist Relationship Specialty Start Date End Date Brennan Baez MD [address] [place], [place] [id number] PCP - General Anesthesiology 02/10/23 Ben Day Artist Relationship Specialty Start Date End Date Brennan Baez MD [address] [place], [place] [id number] PCP - General Anesthesiology 02/10/23 Source Comments (unrecognize d section and content) In the event this informatio n is protected by the Federal Confidentiality of Alcohol and Drug Abuse Patient Records regulations: The Federal rules restrict any use of the information to criminally investigate or prosecute any alcohol or drug abuse patient.[facility] Reason for Visit (unrecogniz ed section and content) Reason Comments Tinnitus New patient Specialty Diagnoses / Procedures Referred By Contearl t Referred To Contact Otolaryngology Diagnoses Subjective tinnitus, unspecified laterality Johan Williamson DO [facility] [place] [address] Phillip uD, CREATIVE MANAGER [address] [address] Referral ID Status Reason Start Date Expiration Date Visits Re quested Visits Authorized [id number] Closed 01/05/2023 01/05/2024 1 1 FOR RECORDS PERTAINING TO PATIENTS WHO ARE OR HAVE BEEN ENROLLED IN A CHEMICAL DEPENDENCY/SUBSTANCEABUSE PROGRAM, SOME INFORMATION MAY BE OMITTED. This clinical summary was aggregated from multiple sources. Caution should be exercised in using it in the provision of clinical care. This summary normalizes information from multiple sources, and as a consequence, information in this document may materially change the coding, format and clinical context of patient data. In addition, data may be omitted in some cases. CLINICAL DECISIONS SHOULD BE BASED ON THE PRIMARY CLINICAL RECORDS. [facility] [employer] [facility]. provides no warranty or guarantee of the accuracy or completeness of information in this document.
[2023-07-02 12:41] LABS: Erythrocyte Sedimentation Rate 42 mm/hr (0-30)
[2023-07-02 12:43] LABS: Absolute Lymphocyte Count 3.09 X10^3/uL (0.83-4.51); Absolute Neutrophil Count 6.3 X10^3/uL (2.0-7.7); Basophil# 0.06 X10^3/uL; Basophil% 0.6 % (0-1); Eosinophil# 0.25 X10^3/uL; Eosinophils% 2.4 % (0-5); Hematocrit 41.2 % (37-47); Hemoglobin 13.4 g/dL (12.0-15.0); Lymphocyte # 3.09 X10^3/ul (0.83-4.51); Lymphocyte % 29.7 % (19-41); Mean Corp Hgb Conc 32.5 g/dL (32-36); Mean Corpuscular Hgb 29.2 pg (27.0-32.0); Mean Corpuscular Volume 89.8 fL (81-99); Mean Platelet Vol. 10.8 fl (6.2-12.0); Monocyte# 0.63 X10^3/uL; NRBC Flagged by Analyzer 0 % (0-5); Neutrophil # 6.34 X10^3/uL (2.7-7.7); Neutrophil % 60.8 % (47-70); Platelet Count 315 K/mm3 (150-450); RBC Distribution Width CV 14.1 % (11.6-14.6); RBC Distribution Width SD 46.4 fl (35.1-43.9); Red Blood Count 4.59 M/mm3 (4.2-5.4); White Blood Count 10.4 K/mm3 (4.4-11.0)
[2023-07-02 12:49] LABS: ALB/GLOB Ratio 0.9 RATIO (0.9-2.4); AST(SGOT) 16 U/L (15-37); Alanine Aminotransfer ALT/SGPT 43 U/L (13-56); Albumin, Serum 3.7 g/dL (3.2-5.0); Alkaline Phosphatase 88 U/L (45-117); Anion Gap 6 (5-15); BUN 11 mg/dL (7-18); BUN/Creat Ratio 11.2 RATIO (10-20); Calcium,Total 9.7 mg/dL (8.5-10.1); Chloride 109 mmol/L (98-107); Creatinine, Serum 0.98 mg/dL (0.55-1.02); EST Glomerular Filtration Rate 64 mL/min (>60); Est Glom Filt Rate - Afr Amer 77 mL/min (>60); Globulin 3.9 g/dL (2.2-4.2); Glucose 105 mg/dL (74-106); Potassium 3.9 mmol/L (3.5-5.1); Protein, Total 7.6 g/dL (6.4-8.2); Rheumatoid Factor < 10.0 IU/mL (<15); Sodium Level 138 mmol/L (136-145)
[2023-07-02 15:16] LABS: Hepatitis B Surface Antibody Reactive; Hepatitis B Surface Antigen Non-Reactive (Nonreactive); Hepatitis C Antibody Non-Reactive (Nonreactive)
[2023-07-03 14:13] LABS: CCP IgG Antibodies 11 units (0-19)
[2023-07-05 12:08] LABS: ANTINUCLEAR ANTIBODIES DIRECT Positive (Negative)
== END | disposition home or self-care (01) ==
LOC: MTLAB 10:20
PROVIDERS: PCP Family Medicine; Referring Provider Internal Medicine Rheumatology; Visit Provider Internal Medicine Rheumatology
DX: M06.4 Inflammatory polyarthropathy (principal); M79.7 Fibromyalgia
CPT/HCPCS: 36415; 72170; 80053; 85025; 85652; 86038; 86140; 86200; 86431; 86706; 86803; 87340

== ENCOUNTER → 2023-07-12 | Outpatient (CLI) | payer BC, SELFPAY ==
--- OUTSIDE RECORDS SUMMARY | 2023-07-12 17:07 | XMS RPT_ITS | CCD ---
Author Name Unknown Address [address] [place] [address] Organization [facility] Care Team Providers Care Reheater Helper Name Role Phone SASHA LABOY, Dmitriy MONREAL Attending Unavailable SASHA LABOY, Dmitriy MONREAL Primary Care Unavailable SASHA LABOY, Dmitriy MONREAL Attending Unavailable SASHA LABOY, Dmitriy MONREAL Primary Care Unavailable SASHA LABOY, Dmitriy MONREAL Attending Unavailable SASHA LABOY, Dmitriy MONREAL Primary Care Unavailable Johan Williamson DO Primary Care Provider Ovi Baez MD Primary Care Provider OVI BAEZ Primary Care Unavailable Brennan Baez MD Primary Care Provider [phone] OVI BAEZ Primary Care Unavailable SHANICE LABOY~[phone], SHANICE Green Attendbarney g Unavailable SHANICE LABOY~[phone], SHANICE Green Admittbarney g Unavailable Allergies Allergy Classification Reported Allergen(s) Allergy Type Date of Onset Reaction(s) Facility (2 sources) Trifluoperazine; Translations: [TRIFLUOPERAZINE HCL] Drug Allergy 03-23-20 16 Mental Status Change [facility] (2 sources) Adhesive agent Propensity to adverse reactions to drug 06-09-19 18 Unknown [facility] (2 sources) Latex Propensity to adverse reactions to drug 09-04-19 15 Rash [facility] (2 sources) Trifluoperazine Drug Allergy 03-23-20 16 Other (See Comments) [facility] Medications Current Medications Medication Drug Class(es) Dates Sig (Normalized) Sig (Original) [id number] 200 actuat albuterol 0.09 mg/actuat metered dose [...] hours as needed for shortness of breath. [facility] ([id number]) 0 03/23/2016 Active Completed/Discontinued Medications Medication Drug [...] 02-10-2023 13:12-0400 Body height 166.4 cm [facility] Nurse COMMAND AND CONTROL SPECIALIST Work Phone: [facility] 02-10-2023 13:12-0400 Body mass index (BMI) [Ratio] 46.61 kg/m2 [place] COMMAND AND CONTROL SPECIALIST Work Phone: [facility] 02-10-2023 13:12-0400 Body weight 129 kg [facility] [place] COMMAND AND CONTROL SPECIALIST Work Phone: [facility] 02-10-2023 13:12-0400 Diastolic blood pressure 87 mm[Hg] Fisher [place] COMMAND AND CONTROL SPECIALIST Work Phone: [facility] 02-10-2023 13:12-0400 Heart rate 73 /min [place] COMMAND AND CONTROL SPECIALIST Work Phone: [facility] 02-10-2023 13:12-0400 SaO2% (BldA) [Mass fraction] 97 % Fisher [place] COMMAND AND CONTROL SPECIALIST Work Phone: [facility] 02-10-2023 13:12-0400 Systolic blood pressure 122 mm[Hg] [place] COMMAND AND CONTROL SPECIALIST Work Phone: [facility] 01-20-2023 10:27-0400 Body temperature 97.7 [degF] Bia Athy PA-C Work Phone: [facility] 01-20-2023 10:27-0400 Body weight 125.19 kg Bia Athy PA-C Work Phone: [facility] 01-20-2023 10:27-0400 Diastolic blood pressure 78 mm[Hg] Bia Athy PA-C Work Phone: [facility] 01-20-2023 10:27-0400 Heart rate 84 /min Bia Athy PA-C Work Phone: [facility] 01-20-2023 10:27-0400 Respiratory rate 16 /min Bia Athy PA-C Work Phone: [facility] 01-20-2023 10:27-0400 SaO2% (BldA) [Mass fraction] 97 % Bia Negrete PA-C Work Phone: [facility] 01-20-2023 10:27-0400 Systolic blood pressure 118 mm[Hg] Bia Negrete PA-C Work Phone: [facility] Encounters Encounter Date Encounter Type Care Provider Facility Start: 06-18-2023 ambulatory [facility] Start: 02-10-2023 End: 02-10-2023 Clinical Support Perla Carrasco Work Phone: [facility] Plan of Treatment Date Care Activity Detail Author Start: 05-31-2023 Diabetes Screening Diabetes Screenin g [facility] Start: 01-01-2023 Influenza vaccination [facility] Start: 10-13-2022 Tetanus vaccination Tetanus: Every 1 0yrs [facility] Start: 05-03-2022 Depression Assessment Depression Ass essment [facility] Start: 02-01-2022 Mammography Mammogram Screening [facility] Start: 2018 Cologuard (FIT-DNA) Cologuard (FIT-D NA) [facility] Start: 2018 Colonoscopy Colonoscopy [facility] Start: 2018 Colorectal Cancer Screening Colorectal Cancer Screening [facility] Start: [address] COLONOGRAPHY [facility] Start: 2018 Fecal Occult Blood Fecal Occult Bloo d [facility] Start: 2018 Lipid 1996 panel - S nelly or Plasma Lipid Screening [facility] Start: 2018 SIGMOIDOSCOPY SIGMOIDOSCOPY [facility] Start: 2013 Screening for malign ant neoplasm of breast Mammogram [facility] Start: 10-21-2003 HPV Testing HPV Testing [facility] Start: 1994 Pap Testing Pap Testing [facility] Start: 1994 Screening for malign ant neoplasm of cervix Pap Smear [facility] Start: 1992 Urine microalbumin profile DTa P,Tdap,Td Vaccine (1 - Tdap) [facility] Start: 10-21-1991 Hepatitis C Screening Hepatitis C [facility] Start: 10-21-1991 Hepatitis C screening Hepatitis C [facility] Start: 10-21-1991 HIV Screening HIV Screening [facility] Start: 1988 HIV screening HIV Screening [facility] Start: 1985 Depression screening using PHQ-9 (Patient Health Questionnaire 9) score Depression Screening (PHQ-2/9) [facility] Start: 1976 History and physical examination, annual for health maintenance Wellness Visit [facility] Start: 04-21-1974 Covid-19 Vaccine (#1) Covid-19 Vacci ne (#1) [facility] Start: 1973 Hepatitis B Vaccine (1 of 3 - 3-dose series) Hepatitis B Vaccine (1 of 3 - 3-dose series) [facility] Start: 1973 Screening for malign ant neoplasm of colon [facility] Payers Date Payer Category Payer Unknown [id number] 1975 Unknown [id number] 1973 Unknown [id number] 1973 Unknown [id number] 1973 Unknown [id number] 1959 Unknown [id number] Social History Date Type Detail Facility [facility] smoking consumption unknown [facility] Start: 1975 Sex Assigned At Not on file O [facility] Start: 01-20-2023 Gender identity Not on file [facility] Start: 03-23-2016 End: 02-10-2023 Tobacco smoking status NHIS Ex-smoker [facility] History of tobacco use Current smoker [facility] Start: 03-23-2016 End: 02-10-2023 Tobacco use and exposure Smokeless tobacco non-user [facility] Start: 01-20-2023 Alcohol intake Not Asked [facility] Start: 01-20-2023 History of Social function [facility] History of tobacco use Cigarette Smoker O [facility] Clinical Notes 11-19-2021 to 02-10-2023 Perla Mahoney AuD - 02/10/2023 2:36 PM Phillip Ayala CNP - 02/10/2023 2:00 PM Bia Walters PA-C - 01/20/2023 10:58 AM EDTPatient Instructions Note Date & Type Note Facility 02-10-2023 History of Present illness Narrative Images from the original note were not included. [facility] [address] [place] [address] Name: Joni Kenny : 1975 Date: 02/10/23 [...] 02/10/23 2:37 PM documented in this encounter [facility] 02-10-2023 History of Present illness Narrative Images from the original note were not included. ENT New Patient Visit Patient Name: Joni Kenny MR #: [id number] : 1975 Physicians: Brennan Baez MD (Family); [...] hours as needed for shortness of breath. [facility] ([id number]) clotrimazole-betamethasone (LOTRISONE) cream APPLY ON THE SKIN [...] tenderness or frontal sinus tenderness. Mouth/Throat: Lips: [place]. No lesions. Mouth: Mucous membranes are moist. [...] Du CNP 02/10/23 documented in this encounter [facility] 01-20-2023 Note HNO ID: [id number] Author: Bia Negrete PA-C Service: ? Author Type: Physician A And P Technician Type: Progress Notes Filed: 01/20/2023 11:01 AM Note Text: This note was created using [employer]. Subjective Joni Kenny is a 47 year [...] mouth. (Patient not taking: Reported on 01/20/2023) GLUCOSAM/MSM/CHOND/QIP648/HYAL ([id number], WITH ANTIOX, ORAL) Take by mouth. (Patient [...] with Bactrim for possible secondary infection. Bia Negreet PA-C [facility] 01-20-2023 History of Present illness Narrative Images from the original note were not included. This note was created using [employer]. Subjective Joni Kenny is a 47 year [...] mouth. (Patient not taking: Reported on 01/20/2023) GLUCOSAM/MSM/CHOND/TIG008/HYAL ([id number], WITH ANTIOX, ORAL) Take by mouth. (Patient [...] Bia Negrete PA-C documented in this encounter [facility] 01-20-2023 Instructions Bia Negrete PA-C - 01/20/2023 10:38 AM EDT Zyrtec 10 mg daily for 5-7 days documented in this encounter [facility] 10-14-2022 Note . MICRO - Microbiology PROCEDURE: [...] Locations *1: This test was performed at: [facility], [address] [place] [address], [address] , [facility] ([place]) 11-19-2021 Note . MICRO - Microbiology PROCEDURE: [...] Locations *1: This test was performed at: [facility], [address] [place] [address], [facility] , [facility] Rash- Primary Rash and other nonspecific skin eruption Spider bite wound, accidental or unintentional, initial encounter [facility] Tinnitus, bilateral- Primary Unspecified tinnitus Vertigo Dizziness and giddiness [facility] Diagnosis Subjective tinnitus of both ears- Primary Normal hearing exam Other examination of ears and hearing TMJ click Right ear pain Unspecified otalgia documented in this encounter [facility] Summary Purpose Family History No Family [...] Subjective tinnitus, unspecified laterality Johan Williamson DO [facility] [place] [address] Rell Berumen MD [facility] [address] [address] Referral ID Status Reason Start Date Expiration Date V isits Requested Visits Authorized [id number] Authorized 01/05/2023 01/05/2024 1 1 Specialty Diagnoses / Procedures Referred By José Miguel t Referred To Contact Audiology Diagnoses Subjective tinnitus of both ears Normal hearing exam Radiology Nurse, Phillip Hernandez, COMMAND AND CONTROL SPECIALIST [address] [facility] [address] [place] [address] Perla Mahoney AuD [address] [facility] [address] [place] [address] Referral ID Status Reason Start Date Expiration Date V isits Requested Visits Authorized [id number] Authorized 02/10/2023 02/10/2024 1 1 Additional Source Comments INFORMATION SOURCE (unrecogn ized section and content) DATE CREATED AUTHOR AUTHOR'S ORGANIZ ATION 06/14/2021 [facility] DATE CREATED AUTHOR AUTHOR'S ORGANIZ ATION 11/09/2022 [facility] ([place]) DATE CREATED AUTHOR AUTHOR'S ORGANIZ ATION 01/22/2023 [facility] DATE CREATED AUTHOR AUTHOR'S ORGANIZ ATION 02/27/2023 [facility] DATE CREATED AUTHOR AUTHOR'S ORGANIZ ATION 04/23/2023 [facility] Care Teams (unrecognized sec tion and content) Reheater Helper Relationship Specialty [place] [address] [place] [address] [place] [address] PCP - General Family Medicine 03/23/16 Reheater Helper Relationship Specialty Start Date End Date Brennan Baez MD [place], [place] [phone] PCP - General Anesthesiology 02/10/23 Reheater Helper Relationship Specialty Start Date End Date Brennan Baez MD [place], [place] [phone] PCP - General Anesthesiology 02/10/23 Source Comments (unrecognize d section and content) In the event this informatio n is protected by the Federal Confidentiality of Alcohol and Drug Abuse Patient Records regulations: The Federal rules restrict any use of the information to criminally investigate or prosecute any alcohol or drug abuse patient.[facility] Reason for Visit (unrecogniz ed section and content) Reason Comments Tinnitus New patient Specialty Diagnoses / Procedures Referred By Contearl t Referred To Contact Otolaryngology Diagnoses Subjective tinnitus, unspecified laterality Johan Williamson DO [facility] [place] [address] Phillip Du, COMMAND AND CONTROL SPECIALIST [address] [address] Referral ID Status Reason Start Date Expiration Date Visits Re quested Visits Authorized [id number] Closed 01/05/2023 01/05/2024 1 1 FOR RECORDS [...] BE BASED ON THE PRIMARY CLINICAL RECORDS. [facility]. provides no warranty or guarantee of the accuracy or completeness of information in this document.
[2023-07-19 04:06] LABS: Cortisol, Free 24Ur 27 ug/24 hr (6-42); Cortisol, Urinary Free 17 ug/L (Undefined)
== END | disposition home or self-care (01) ==
LOC: LABSPEC 12:38
PROVIDERS: PCP Family Medicine; Referring Provider Internal Medicine Endocrinology, Diabetes & Metabolism; Visit Provider Internal Medicine Endocrinology, Diabetes & Metabolism
DX: E27.9 Disorder of adrenal gland, unspecified (principal)
CPT/HCPCS: 81050; 82530; 82570

== ENCOUNTER → 2023-07-13 | Outpatient (CLI) | payer BC, SELFPAY ==
[2023-07-13 19:05] LABS: ALB/GLOB Ratio 0.9 RATIO (0.9-2.4); AST(SGOT) 22 U/L (15-37); Alanine Aminotransfer ALT/SGPT 37 U/L (13-56); Albumin, Serum 3.5 g/dL (3.2-5.0); Alkaline Phosphatase 89 U/L (45-117); Anion Gap 10 (5-15); BUN 10 mg/dL (7-18); BUN/Creat Ratio 9.3 RATIO (10-20); Calcium,Total 9.6 mg/dL (8.5-10.1); Chloride 106 mmol/L (98-107); Creatinine, Serum 1.07 mg/dL (0.55-1.02); EST Glomerular Filtration Rate 58 mL/min (>60); Est Glom Filt Rate - Afr Amer 70 mL/min (>60); Glucose 119 mg/dL (74-106); Potassium 3.5 mmol/L (3.5-5.1); Protein, Total 7.5 g/dL (6.4-8.2); Sodium Level 138 mmol/L (136-145)
[2023-07-13 20:58] LABS: Hemoglobin A1c 5.5 % (3.8-5.6)
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
== END | disposition home or self-care (01) ==
LOC: MTLAB 10:12
PROVIDERS: PCP Family Medicine; Referring Provider Internal Medicine Endocrinology, Diabetes & Metabolism; Visit Provider Internal Medicine Endocrinology, Diabetes & Metabolism
DX: M85.89 Other specified disorders of bone density and structure, multiple sites (principal); E88.818 Other insulin resistance
CPT/HCPCS: 36415; 80053; 83036

== ENCOUNTER → 2023-08-23 | Outpatient (CLI) | payer BC, SELFPAY ==
--- NOTE | 2023-08-23 13:38 | RAD_ITS ---
STUDY: X-RAY - RIGHT SHOULDER REASON FOR EXAM: Female, 47 years old. Shoulder pain. TECHNIQUE: 4 view(s) of the shoulder. COMPARISON: None. FINDINGS: Normal glenohumeral articulation. Normal acromioclavicular joint. Small subacromial spur. Small bone island in the proximal humerus. Normal soft tissues. Normal visualized pulmonary apex. RAD/Shoulder min 2 Views IMPRESSION: Small subacromial spur. Small proximal humeral bone island. No other abnormality. Electronically Signed: Forest Stephenson MD at 14:07 EDT ,
--- NOTE | 2023-08-23 13:45 | RAD_ITS ---
STUDY: X-RAY - LEFT SHOULDER REASON FOR EXAM: Female, 47 years old. Shallow. TECHNIQUE: 4 view(s) of the shoulder. COMPARISON: None. FINDINGS: Normal glenohumeral articulation. Mild hydronephrosis of the AC joint. Normal acromion. Normal humeral head and visualized proximal humerus. Normal soft tissues. Normal visualized pulmonary apex. RAD/Shoulder min 2 Views IMPRESSION: Mild arthrosis of the AC joint. No other abnormality. Electronically Signed: Forest Stephenson MD at 14:18 EDT ,
== END | disposition home or self-care (01) ==
LOC: RAD 13:38
PROVIDERS: PCP Family Medicine; Referring Provider Anesthesiology Pain Medicine; Visit Provider Anesthesiology Pain Medicine
DX: M25.511 Pain in right shoulder (principal); M25.512 Pain in left shoulder
CPT/HCPCS: 73030

== ENCOUNTER → 2023-10-18 | Outpatient (CLI) | payer BC, SELFPAY ==
[2023-10-18 19:57] LABS: AST(SGOT) 26 U/L (15-37); Alanine Aminotransfer ALT/SGPT 47 U/L (13-56); Anion Gap 11 (5-15); BUN 10 mg/dL (7-18); BUN/Creat Ratio 9.2 RATIO (10-20); Calcium,Total 10.3 mg/dL (8.5-10.1); Chloride 107 mmol/L (98-107); Creatinine, Serum 1.09 mg/dL (0.55-1.02); EST Glomerular Filtration Rate 57 mL/min (>60); Est Glom Filt Rate - Afr Amer 68 mL/min (>60); Glucose 108 mg/dL (74-106); Potassium 3.6 mmol/L (3.5-5.1); Sodium Level 139 mmol/L (136-145)
[2023-10-20 04:07] LABS: Insulin Level 61.1 uIU/mL (2.6-24.9)
== END | disposition home or self-care (01) ==
PROVIDERS: PCP Family Medicine; Referring Provider Internal Medicine Endocrinology, Diabetes & Metabolism; Visit Provider Internal Medicine Endocrinology, Diabetes & Metabolism
DX: E88.818 Other insulin resistance (principal)
CPT/HCPCS: 36415; 80048; 83525; 84450; 84460

== ENCOUNTER → 2023-11-15 | Outpatient (CLI) | payer BC, SELFPAY ==
[2023-11-15 13:19] LABS: Anion Gap 9 (5-15); BUN 12 mg/dL (7-18); BUN/Creat Ratio 12.2 RATIO (10-20); Calcium,Total 9.8 mg/dL (8.5-10.1); Chloride 106 mmol/L (98-107); Creatinine, Serum 0.98 mg/dL (0.55-1.02); EST Glomerular Filtration Rate 64 mL/min (>60); Est Glom Filt Rate - Afr Amer 77 mL/min (>60); Glucose 109 mg/dL (74-106); Potassium 3.6 mmol/L (3.5-5.1); Sodium Level 140 mmol/L (136-145)
== END | disposition home or self-care (01) ==
PROVIDERS: Referring Provider Internal Medicine Endocrinology, Diabetes & Metabolism; Visit Provider Internal Medicine Endocrinology, Diabetes & Metabolism
DX: E88.810 Metabolic syndrome (principal)
CPT/HCPCS: 36415; 80048

== ENCOUNTER → 2023-11-29 | Outpatient (CLI) | payer BC, SELFPAY | END | disposition home or self-care (01) | PROVIDERS: Referring Provider Internal Medicine Rheumatology; Visit Provider Internal Medicine Rheumatology | DX: Z00.00 Encounter for general adult medical examination without abnormal findings (principal) ==

== ENCOUNTER → 2023-12-13 | Outpatient (CLI) | payer BC, SELFPAY ==
[2023-12-13 11:50] LABS: Absolute Neutrophil Count 6.9 X10^3/uL (2.0-7.7); Basophil# 0.04 X10^3/uL; Basophil% 0.4 % (0-1); Eosinophil# 0.23 X10^3/uL; Eosinophils% 2.1 % (0-5); Hematocrit 41.4 % (37-47); Hemoglobin 13.2 g/dL (12.0-15.0); Lymphocyte % 28.4 % (19-41); Mean Corp Hgb Conc 31.9 g/dL (32-36); Mean Corpuscular Hgb 29.1 pg (27.0-32.0); Mean Corpuscular Volume 91.4 fL (81-99); Mean Platelet Vol. 10.3 fl (6.2-12.0); Monocyte# 0.58 X10^3/uL; Monocyte% 5.3 % (0-10); NRBC Flagged by Analyzer 0 % (0-5); Neutrophil # 6.91 X10^3/uL (2.7-7.7); Neutrophil % 63.3 % (47-70); Platelet Count 307 K/mm3 (150-450); RBC Distribution Width CV 13.8 % (11.6-14.6); RBC Distribution Width SD 46.3 fl (35.1-43.9); Red Blood Count 4.53 M/mm3 (4.2-5.4); White Blood Count 10.9 K/mm3 (4.4-11.0)
[2023-12-13 12:03] LABS: Color, Urine Straw (Yellow); Glucose, Dipstick Normal (Normal); Ketone-Dipstick 5 mg/dl (Negative); Leukocyte Esterase-Dipstick 25 /ul (Negative); Nitrite-Dipstick Negative (Negative); Occult Blood-Urine 25 /ul (Negative); Protein-Dipstick 30 mg/dl (Negative); Specific Gravity, Urine 1.025 (1.002-1.030); Urine Bilirubin Dipstick Negative (Negative); Urine Clarity Sl. Cloudy (Clear); Urine Urobilinogen 1 mg/dl (Normal)
[2023-12-13 12:24] LABS: Protein, Urine (Random) 19.9 mg/dL (<11.9); Protein:Creat Ratio 47 mg/g CRE (0-200)
[2023-12-13 12:43] LABS: ALB/GLOB Ratio 0.8 RATIO (0.9-2.4); AST(SGOT) 24 U/L (15-37); Alanine Aminotransfer ALT/SGPT 39 U/L (13-56); Albumin, Serum 3.4 g/dL (3.2-5.0); Alkaline Phosphatase 79 U/L (45-117); Anion Gap 6 (5-15); BUN 11 mg/dL (7-18); BUN/Creat Ratio 10.9 RATIO (10-20); Calcium,Total 9.8 mg/dL (8.5-10.1); Chloride 108 mmol/L (98-107); Creatinine, Serum 1.01 mg/dL (0.55-1.02); EST Glomerular Filtration Rate 62 mL/min (>60); Est Glom Filt Rate - Afr Amer 75 mL/min (>60); Glucose 103 mg/dL (74-106); Potassium 3.4 mmol/L (3.5-5.1); Protein, Total 7.4 g/dL (6.4-8.2); Sodium Level 139 mmol/L (136-145)
== END | disposition home or self-care (01) ==
LOC: MTLAB 09:10
PROVIDERS: Referring Provider Internal Medicine Rheumatology; Visit Provider Internal Medicine Rheumatology
DX: M06.4 Inflammatory polyarthropathy (principal); Z79.899 Other long term (current) drug therapy; R76.8 Other specified abnormal immunological findings in serum; M79.7 Fibromyalgia
CPT/HCPCS: 36415; 80053; 81002; 82570; 84156; 85025

== ENCOUNTER → 2024-02-03 | Outpatient (CLI) | payer BC, SELFPAY ==
[2024-02-03 15:17] LABS: Cholesterol 180 mg/dL (200); High Density Lipoprotein 52 mg/dL; Triglycerides 134 mg/dL; Very Low Density Lipoprotein 27 mg/dL (5-40)
== END | disposition home or self-care (01) ==
LOC: MTLAB 11:42
DX: E78.2 Mixed hyperlipidemia (principal)
CPT/HCPCS: 36415; 80061

== ENCOUNTER → 2024-02-23 | Outpatient (CLI) | payer BC, SELFPAY ==
[2024-02-23 15:35] LABS: AST(SGOT) 18 U/L (15-37); Alanine Aminotransfer ALT/SGPT 33 U/L (13-56); Anion Gap 8 (5-15); BUN 9 mg/dL (7-18); BUN/Creat Ratio 9.3 RATIO (10-20); Calcium,Total 9.9 mg/dL (8.5-10.1); Chloride 111 mmol/L (98-107); Creatinine, Serum 0.97 mg/dL (0.55-1.02); EST Glomerular Filtration Rate 65 mL/min (>60); Est Glom Filt Rate - Afr Amer 78 mL/min (>60); Glucose 95 mg/dL (74-106); Potassium 3.7 mmol/L (3.5-5.1); Sodium Level 142 mmol/L (136-145)
[2024-02-23 16:42] LABS: Albumin, Serum 3.6 g/dL (3.2-5.0); Alkaline Phosphatase 90 U/L (45-117); Bilirubin, Direct 0.13 mg/dL (0.00-0.30); Globulin 3.8 g/dL (2.2-4.2); Protein, Total 7.4 g/dL (6.4-8.2)
[2024-02-24 05:23] LABS: Hepatitis C Antibody Non-Reactive (Nonreactive)
[2024-02-25 10:58] LABS: Insulin Level 35.4 uIU/mL (2.6-24.9)
== END | disposition home or self-care (01) ==
PROVIDERS: Referring Provider Internal Medicine Endocrinology, Diabetes & Metabolism; Visit Provider Internal Medicine Endocrinology, Diabetes & Metabolism
DX: Z00.00 Encounter for general adult medical examination without abnormal findings (principal); Z13.220 Encounter for screening for lipoid disorders; Z11.59 Encounter for screening for other viral diseases; E88.810 Metabolic syndrome
CPT/HCPCS: 36415; 80048; 80076; 83525; 84450; 84460; 86803

== ENCOUNTER → 2024-03-07 | Outpatient (CLI) | payer BC, SELFPAY ==
[2024-03-07 12:07] LABS: Absolute Lymphocyte Count 2.75 X10^3/uL (0.83-4.51); Absolute Neutrophil Count 8.2 X10^3/uL (2.0-7.7); Basophil# 0.06 X10^3/uL; Basophil% 0.5 % (0-1); Eosinophil# 0.14 X10^3/uL; Eosinophils% 1.2 % (0-5); Lymphocyte # 2.75 X10^3/ul (0.83-4.51); Lymphocyte % 23.7 % (19-41); Mean Corp Hgb Conc 33.3 g/dL (32-36); Mean Corpuscular Hgb 29.6 pg (27.0-32.0); Mean Corpuscular Volume 88.8 fL (81-99); Mean Platelet Vol. 10.3 fl (6.2-12.0); Monocyte# 0.43 X10^3/uL; Monocyte% 3.7 % (0-10); NRBC Flagged by Analyzer 0 % (0-5); Neutrophil # 8.17 X10^3/uL (2.7-7.7); Neutrophil % 70.5 % (47-70); Platelet Count 319 K/mm3 (150-450); RBC Distribution Width CV 13.2 % (11.6-14.6); RBC Distribution Width SD 42.8 fl (35.1-43.9); Red Blood Count 4.73 M/mm3 (4.2-5.4); White Blood Count 11.6 K/mm3 (4.4-11.0)
[2024-03-07 16:08] LABS: ALB/GLOB Ratio 0.9 RATIO (0.9-2.4); AST(SGOT) 16 U/L (15-37); Alanine Aminotransfer ALT/SGPT 29 U/L (13-56); Albumin, Serum 3.5 g/dL (3.2-5.0); Alkaline Phosphatase 82 U/L (45-117); Anion Gap 8 (5-15); BUN 9 mg/dL (7-18); BUN/Creat Ratio 9.5 RATIO (10-20); Chloride 110 mmol/L (98-107); Creatinine, Serum 0.94 mg/dL (0.55-1.02); EST Glomerular Filtration Rate 67 mL/min (>60); Est Glom Filt Rate - Afr Amer 81 mL/min (>60); Glucose 107 mg/dL (74-106); Potassium 3.8 mmol/L (3.5-5.1); Protein, Total 7.5 g/dL (6.4-8.2); Sodium Level 138 mmol/L (136-145)
== END | disposition home or self-care (01) ==
LOC: MTLAB 10:49
PROVIDERS: Referring Provider Internal Medicine Rheumatology; Visit Provider Internal Medicine Rheumatology
DX: M06.4 Inflammatory polyarthropathy (principal); R76.8 Other specified abnormal immunological findings in serum; Z79.899 Other long term (current) drug therapy
CPT/HCPCS: 36415; 80053; 85025

== ENCOUNTER → 2024-05-19 | Outpatient (CLI) | payer BC, SELFPAY ==
[2024-05-19 15:39] LABS: AST(SGOT) 13 U/L (15-37); Alanine Aminotransfer ALT/SGPT 30 U/L (13-56); Anion Gap 7 (5-15); BUN 10 mg/dL (7-18); BUN/Creat Ratio 9.7 RATIO (10-20); Calcium,Total 9.9 mg/dL (8.5-10.1); Chloride 108 mmol/L (98-107); Creatinine, Serum 1.03 mg/dL (0.55-1.02); EST Glomerular Filtration Rate 60 mL/min (>60); Est Glom Filt Rate - Afr Amer 73 mL/min (>60); Glucose 102 mg/dL (74-106); Potassium 3.8 mmol/L (3.5-5.1); Sodium Level 138 mmol/L (136-145)
[2024-05-21 15:07] LABS: Insulin Level 85.1 uIU/mL (2.6-24.9)
== END | disposition home or self-care (01) ==
PROVIDERS: Referring Provider Internal Medicine Endocrinology, Diabetes & Metabolism; Visit Provider Internal Medicine Endocrinology, Diabetes & Metabolism
DX: E88.810 Metabolic syndrome (principal)

== ENCOUNTER → 2024-06-12 | Outpatient (CLI) | payer BC, SELFPAY ==
--- NOTE | 2024-06-12 13:12 | BI_ITS ---
PROCEDURE: SCRN MAMM (CAD)W/ELLIOTT BILAT REASON FOR EXAM: F, Age 48 y/o , presents for annual screening mammogram. Family history of breast cancer paternal grandmother in her 50s and maternal aunt in her 40s. TECHNIQUE: Bilateral screening digital breast tomosynthesis with 2D and 3D images. Computer aided detection. COMPARISON: 05/31/2023. FINDINGS: There are scattered areas of fibroglandular density. The inferior left breast is not fully included on this examination on the MLO view. Otherwise, no suspicious masses, areas of developing architectural distortion, or suspicious calcifications in the right breast. BI/SCRN MAMM (CAD)W/ELLIOTT BILAT IMPRESSION: The inferior left breast is not fully included on the MLO view, recommend techn ical repeat of the left MLO view to include tissue in the anterior left breast. There is no mammographic evidence of malignancy in the right breast. BI-RADS 0: INCOMPLETE - NEED ADDITIONAL IMAGING EVALUATION. Follow-up code: Additional Views obtained/call backs The patient will be notified of the results by letter. Reading Location: [id number]
== END | disposition home or self-care (01) ==
LOC: OPBI 13:11
DX: Z12.31 Encounter for screening mammogram for malignant neoplasm of breast (principal)
CPT/HCPCS: 77063; 77067

== ENCOUNTER → 2024-06-14 | Outpatient (CLI) | payer BC, SELFPAY ==
[2024-06-14 15:27] LABS: Absolute Neutrophil Count 10.5 X10^3/uL (2.0-7.7); Basophil# 0.05 X10^3/uL; Basophil% 0.4 % (0-1); Eosinophil# 0.05 X10^3/uL; Eosinophils% 0.4 % (0-5); Hematocrit 41.1 % (37-47); Hemoglobin 13.5 g/dL (12.0-15.0); Lymphocyte % 19.4 % (19-41); Mean Corp Hgb Conc 32.8 g/dL (32-36); Mean Corpuscular Hgb 29.2 pg (27.0-32.0); Mean Platelet Vol. 10.4 fl (6.2-12.0); Monocyte% 4.3 % (0-10); NRBC Flagged by Analyzer 0 % (0-5); Neutrophil # 10.47 X10^3/uL (2.7-7.7); Neutrophil % 75.1 % (47-70); Platelet Count 297 K/mm3 (150-450); RBC Distribution Width CV 13.6 % (11.6-14.6); RBC Distribution Width SD 44.2 fl (35.1-43.9); Red Blood Count 4.62 M/mm3 (4.2-5.4); White Blood Count 13.9 K/mm3 (4.4-11.0)
[2024-06-14 16:00] LABS: ALB/GLOB Ratio 0.8 RATIO (0.9-2.4); AST(SGOT) 19 U/L (15-37); Alanine Aminotransfer ALT/SGPT 32 U/L (13-56); Albumin, Serum 3.3 g/dL (3.2-5.0); Alkaline Phosphatase 84 U/L (45-117); Anion Gap 6 (5-15); BUN 10 mg/dL (7-18); BUN/Creat Ratio 11.5 RATIO (10-20); Chloride 111 mmol/L (98-107); Creatinine, Serum 0.87 mg/dL (0.55-1.02); EST Glomerular Filtration Rate 73 mL/min (>60); Est Glom Filt Rate - Afr Amer 88 mL/min (>60); Globulin 4.2 g/dL (2.2-4.2); Glucose 98 mg/dL (74-106); Potassium 4.2 mmol/L (3.5-5.1); Protein, Total 7.5 g/dL (6.4-8.2); Sodium Level 138 mmol/L (136-145)
[2024-06-18 18:07] LABS: G6PD Quant Test 306 (127-427); Red Blood Cell Count Test/G6PD 4.68 x10E6/uL (3.77-5.28)
== END | disposition home or self-care (01) ==
LOC: MTLAB 12:48
PROVIDERS: Referring Provider Internal Medicine Rheumatology; Visit Provider Internal Medicine Rheumatology
DX: M06.4 Inflammatory polyarthropathy (principal); R76.8 Other specified abnormal immunological findings in serum; M79.7 Fibromyalgia; Z79.899 Other long term (current) drug therapy
CPT/HCPCS: 36415; 80053; 82955; 85025

== ENCOUNTER → 2024-07-21 | Outpatient (CLI) | payer BC, SELFPAY ==
--- NOTE | 2024-07-21 16:25 | RAD_ITS ---
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 Mild posterior and inferior calcaneal spurring is seen. Normal contour of the Achilles tendon is seen in the lateral view. No ankle joint effusion is evident. No significant ankle joint degenerative change or joint narrowing is noted. The ankle mortise appears intact. No fracture site is seen. Satisfactory osseous alignment is seen throughout. Reading Location: [id number]
== END | disposition home or self-care (01) ==
LOC: RAD 16:17
PROVIDERS: PCP Family Medicine; Referring Provider Physician Assistant Surgical; Visit Provider Physician Assistant Surgical
DX: M25.571 Pain in right ankle and joints of right foot (principal); S93.431A Sprain of tibiofibular ligament of right ankle, initial encounter
CPT/HCPCS: 73610

== ENCOUNTER → 2024-08-01 | Outpatient (CLI) | payer BC, SELFPAY ==
[2024-08-01 12:58] LABS: ALB/GLOB Ratio 1.3 RATIO (0.9-2.4); AST(SGOT) 24 U/L (<=31); Alanine Aminotransfer ALT/SGPT 29 U/L (<=34); Albumin, Serum 4.3 g/dL (3.5-5.0); Alkaline Phosphatase 98 U/L (35-104); Anion Gap 13 (5-15); BUN 7 mg/dL (4-19); BUN/Creat Ratio 7.1 RATIO (10-20); Calcium,Total 10.1 mg/dL (7.6-11.0); Carbon Dioxide 23.2 mmol/L (21.0-32.0); Chloride 104 mmol/L (98-108); Cholesterol 214 mg/dL (<=200); Creatinine, Serum 0.94 mg/dL (0.70-1.20); EST Glomerular Filtration Rate 74 (>60); Globulin 3.4 g/dL (2.2-4.2); Glucose 93 mg/dL (70-99); Hepatitis C Antibody Nonreactive (Nonreactive); High Density Lipoprotein 61 mg/dL; Low Density Lipoprotein Calc. 119 mg/dL; Potassium 3.5 mmol/L (3.3-5.1); Protein, Total 7.7 g/dL (5.9-8.4); Sodium Level 141 mmol/L (133-145); Total Bilirubin 0.48 mg/dL (0.00-1.30); Triglycerides 173 mg/dL; Very Low Density Lipoprotein 35 mg/dL (5-40); cholesterol:hdl ratio screen 3.54
== END | disposition home or self-care (01) ==
PROVIDERS: PCP Family Medicine; Referring Provider Family Medicine; Visit Provider Family Medicine
DX: Z00.00 Encounter for general adult medical examination without abnormal findings (principal); Z13.220 Encounter for screening for lipoid disorders; Z11.59 Encounter for screening for other viral diseases
CPT/HCPCS: 36415; 80053; 80061; 86803

== ENCOUNTER → 2024-08-24 | Outpatient (CLI) | payer BC, SELFPAY ==
[2024-08-24 13:31] LABS: AST(SGOT) 22 U/L (<=31); Alanine Aminotransfer ALT/SGPT 23 U/L (<=34); Anion Gap 13 (5-15); BUN 12 mg/dL (4-19); Calcium,Total 10.4 mg/dL (7.6-11.0); Carbon Dioxide 20.8 mmol/L (21.0-32.0); Chloride 105 mmol/L (98-108); Creatinine, Serum 0.87 mg/dL (0.70-1.20); EST Glomerular Filtration Rate 82 (>60); Glucose 96 mg/dL (70-99); Potassium 3.9 mmol/L (3.3-5.1); Sodium Level 139 mmol/L (133-145)
[2024-08-25 02:07] LABS: Insulin Level 39.3 uIU/mL (2.6-24.9)
== END | disposition home or self-care (01) ==
LOC: MTLAB 09:02
PROVIDERS: PCP Family Medicine; Referring Provider Internal Medicine Endocrinology, Diabetes & Metabolism; Visit Provider Internal Medicine Endocrinology, Diabetes & Metabolism
DX: E88.810 Metabolic syndrome (principal)
CPT/HCPCS: 36415; 80048; 83525; 84450; 84460

== ENCOUNTER → 2024-08-28 | Outpatient (CLI) | payer BC, SELFPAY ==
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
== END | disposition home or self-care (01) ==
LOC: MRI 08:55
PROVIDERS: PCP Family Medicine; Referring Provider Orthopaedic Surgery Orthopaedic Surgery of the Spine; Visit Provider Orthopaedic Surgery Orthopaedic Surgery of the Spine
DX: M54.2 Cervicalgia (principal)
CPT/HCPCS: 72141

== ENCOUNTER → 2024-09-04 | Outpatient (CLI) | payer BC, SELFPAY ==
[2024-09-04 16:11] LABS: Absolute Lymphocyte Count 3.89 X10^3/uL (0.83-4.51); Absolute Neutrophil Count 7.4 X10^3/uL (2.0-7.7); Basophil# 0.08 X10^3/uL; Basophil% 0.6 % (0-1); Eosinophil# 0.16 X10^3/uL; Eosinophils% 1.3 % (0-5); Hematocrit 41.9 % (37-47); Hemoglobin 13.9 g/dL (12.0-15.0); Lymphocyte # 3.89 X10^3/ul (0.83-4.51); Lymphocyte % 31.5 % (19-41); Mean Corp Hgb Conc 33.2 g/dL (32-36); Mean Corpuscular Hgb 29.6 pg (27.0-32.0); Mean Corpuscular Volume 89.3 fL (81-99); Mean Platelet Vol. 10.8 fl (6.2-12.0); Monocyte# 0.71 X10^3/uL; Monocyte% 5.8 % (0-10); NRBC Flagged by Analyzer 0 % (0-5); Neutrophil # 7.44 X10^3/uL (2.7-7.7); Neutrophil % 60.4 % (47-70); Platelet Count 301 K/mm3 (150-450); RBC Distribution Width CV 13.1 % (11.6-14.6); RBC Distribution Width SD 42.7 fl (35.1-43.9); Red Blood Count 4.69 M/mm3 (4.2-5.4); White Blood Count 12.3 K/mm3 (4.4-11.0)
[2024-09-04 16:39] LABS: ALB/GLOB Ratio 1.2 RATIO (0.9-2.4); AST(SGOT) 16 U/L (<=31); Alanine Aminotransfer ALT/SGPT 16 U/L (<=34); Alkaline Phosphatase 86 U/L (35-104); Anion Gap 14 (5-15); BUN 13 mg/dL (4-19); Calcium,Total 10.1 mg/dL (7.6-11.0); Carbon Dioxide 22.5 mmol/L (21.0-32.0); Chloride 105 mmol/L (98-108); Creatinine, Serum 1.05 mg/dL (0.70-1.20); EST Glomerular Filtration Rate 65 (>60); Globulin 3.4 g/dL (2.2-4.2); Glucose 86 mg/dL (70-99); Potassium 3.8 mmol/L (3.3-5.1); Protein, Total 7.5 g/dL (5.9-8.4); Sodium Level 141 mmol/L (133-145); Total Bilirubin 0.42 mg/dL (0.00-1.30)
== END | disposition home or self-care (01) ==
LOC: MTLAB 12:44
PROVIDERS: PCP Family Medicine; Referring Provider Internal Medicine Rheumatology; Visit Provider Internal Medicine Rheumatology
DX: M06.4 Inflammatory polyarthropathy (principal); R76.8 Other specified abnormal immunological findings in serum; M79.7 Fibromyalgia; Z79.899 Other long term (current) drug therapy
CPT/HCPCS: 36415; 80053; 85025

== ENCOUNTER → 2024-11-21 | Outpatient (CLI) | payer BC, SELFPAY ==
[2024-11-21 12:23] LABS: Hematocrit 40.7 % (37-47); Hemoglobin 13.6 g/dL (12.0-15.0); Immature Granulocytes Count 0.030 X10^3/uL (0.0-0.0); Mean Corp Hgb Conc 33.4 g/dL (32-36); Mean Corpuscular Volume 89.3 fL (81-99); Mean Platelet Vol. 11.4 fl (6.2-12.0); NRBC Flagged by Analyzer 0 % (0-5); Platelet Count 248 K/mm3 (150-450); RBC Distribution Width CV 13.5 % (11.6-14.6); RBC Distribution Width SD 44.0 fl (35.1-43.9); Red Blood Count 4.56 M/mm3 (4.2-5.4); White Blood Count 9.5 K/mm3 (4.4-11.0)
[2024-11-21 13:24] LABS: AST(SGOT) 19 U/L (<=31); Alanine Aminotransfer ALT/SGPT 15 U/L (<=34); Albumin, Serum 3.9 g/dL (3.5-5.0); Alkaline Phosphatase 87 U/L (35-104); Anion Gap 11 (5-15); BUN 10 mg/dL (4-19); BUN/Creat Ratio 10.2 RATIO (10-20); Calcium,Total 9.8 mg/dL (7.6-11.0); Carbon Dioxide 21.0 mmol/L (21.0-32.0); Chloride 110 mmol/L (98-108); Globulin 3.1 g/dL (2.2-4.2); Glucose 91 mg/dL (70-99); Potassium 4.2 mmol/L (3.3-5.1)
== END | disposition home or self-care (01) ==
LOC: MTLAB 09:46
PROVIDERS: PCP Family Medicine; Referring Provider Internal Medicine Rheumatology; Visit Provider Internal Medicine Rheumatology
DX: M06.4 Inflammatory polyarthropathy (principal); M79.7 Fibromyalgia; R76.8 Other specified abnormal immunological findings in serum; Z79.899 Other long term (current) drug therapy
CPT/HCPCS: 36415; 80053; 85025

== ENCOUNTER → 2024-11-23 | Outpatient (CLI) | payer BC, SELFPAY ==
--- NOTE | 2024-11-23 10:04 | VDUE_ITS ---
Reason For Study Reason For Study: Swelling and Pain Right Proximal Left Proximal Right jugular vein is spontaneous, widely patent, Left subclavian vein is spontaneous, widely patent, phasic, with no intraluminal echogenicity noted. phasic, with no intraluminal echogenicity noted. Right subclavian vein is spontaneous, widely patent, phasic, with no intraluminal echogenicity noted. Right Lower Arm Right radial vein is compressible. Right superficial vein at wrist dilated and NON COMPRESSIBLE. Right ulnar vein is compressible. Right Arm Right axillary vein is spontaneous, patent, phasic, competent, compressible and demonstrates augmentation. Right brachial vein is compressible. Right cephalic vein is compressible. Right basilic vein is compressible. Procedure This was a unilateral right upper extremity venous doppler examination. Exam performed in department. A preliminary report was called and/or faxed to Angela Sanchez. VL/Venous Duplex US, Unilateral Interpretation Summary Acute superficial vein thrombosis noted in vein at right wrist. Deep veins of the right upper extremity are patent and compressible segmentally . There is no evidence of deep vein thrombosis. Ordering Physician: ANGELA SANCHEZ Referring Physician: ANGELA SANCHEZ Performed By: Taya Hanson RVT ???
== END | disposition home or self-care (01) ==
PROVIDERS: PCP Family Medicine
DX: R22.31 Localized swelling, mass and lump, right upper limb (principal); M79.641 Pain in right hand
CPT/HCPCS: 93971

== ENCOUNTER → 2024-12-11 | Outpatient (CLI) | payer BC, SELFPAY ==
[2024-12-11 16:44] LABS: Anion Gap 14 (5-15); BUN 8 mg/dL (4-19); BUN/Creat Ratio 8.3 RATIO (10-20); Calcium,Total 10.0 mg/dL (7.6-11.0); Carbon Dioxide 21.3 mmol/L (21.0-32.0); Chloride 105 mmol/L (98-108); Glucose 107 mg/dL (70-99); Potassium 3.3 mmol/L (3.3-5.1)
== END | disposition home or self-care (01) ==
LOC: MTLAB 11:01
PROVIDERS: PCP Family Medicine; Referring Provider Internal Medicine Endocrinology, Diabetes & Metabolism; Visit Provider Internal Medicine Endocrinology, Diabetes & Metabolism
DX: E88.810 Metabolic syndrome (principal)
CPT/HCPCS: 36415; 80048; 83525

== ENCOUNTER → 2025-02-02 | Outpatient (CLI) | payer BC, SELFPAY ==
[2025-02-02 15:37] LABS: Cholesterol 181 mg/dL (<=200); Low Density Lipoprotein Calc. 94 mg/dL; Triglycerides 180 mg/dL; Very Low Density Lipoprotein 36 mg/dL (5-40); cholesterol:hdl ratio screen 3.58
== END | disposition home or self-care (01) ==
LOC: MTLAB 13:30
PROVIDERS: PCP Family Medicine; Referring Provider Family Medicine; Visit Provider Family Medicine
DX: E78.2 Mixed hyperlipidemia (principal)
CPT/HCPCS: 36415; 80061

== ENCOUNTER → 2025-03-07 | Outpatient (CLI) | payer BC, SELFPAY ==
[2025-03-07 15:21] LABS: Hematocrit 46.4 % (37-47); Hemoglobin 15.3 g/dL (12.0-15.0); Immature Granulocytes Count 0.060 X10^3/uL (0.0-0.0); Mean Corp Hgb Conc 33.0 g/dL (32-36); Mean Corpuscular Volume 88.9 fL (81-99); Mean Platelet Vol. 11.0 fl (6.2-12.0); NRBC Flagged by Analyzer 0 % (0-5); Platelet Count 331 K/mm3 (150-450); RBC Distribution Width CV 13.4 % (11.6-14.6); RBC Distribution Width SD 43.3 fl (35.1-43.9); Red Blood Count 5.22 M/mm3 (4.2-5.4); White Blood Count 12.1 K/mm3 (4.4-11.0)
[2025-03-07 15:50] LABS: AST(SGOT) 18 U/L (<=31); Alanine Aminotransfer ALT/SGPT 19 U/L (<=34); Albumin, Serum 4.4 g/dL (3.5-5.0); Alkaline Phosphatase 98 U/L (35-104); Anion Gap 13 (5-15); BUN 15 mg/dL (4-19); BUN/Creat Ratio 15.8 RATIO (10-20); Calcium,Total 10.1 mg/dL (7.6-11.0); Carbon Dioxide 21.9 mmol/L (21.0-32.0); Chloride 106 mmol/L (98-108); Globulin 3.4 g/dL (2.2-4.2); Glucose 91 mg/dL (70-99); Potassium 3.6 mmol/L (3.3-5.1)
== END | disposition home or self-care (01) ==
LOC: MTLAB 11:10
PROVIDERS: PCP Family Medicine; Referring Provider Internal Medicine Rheumatology; Visit Provider Internal Medicine Rheumatology
DX: M06.4 Inflammatory polyarthropathy (principal); M79.7 Fibromyalgia; R76.89 Other specified abnormal immunological findings in serum; Z79.899 Other long term (current) drug therapy
CPT/HCPCS: 36415; 80053; 85025